=== PATIENT | female | born 1945 | race Caucasian/White ===

== ENCOUNTER 2019-06-30 11:28 | Emergency (ER) | payer OTHER, MEDICARE ==
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
== END 2019-06-30 12:44 | disposition home or self-care (01) ==
LOC: VM.ED 11:28
DX: S20.211A Contusion of right front wall of thorax, initial encounter (principal); Z79.899 Other long term (current) drug therapy; Z88.2 Allergy status to sulfonamides; V89.2XXA Person injured in unspecified motor-vehicle accident, traffic, initial encounter; Y92.410 Unspecified street and highway as the place of occurrence of the external cause
CPT/HCPCS: 71101-RT; 99285-25